=== PATIENT | male | born 1980 | race Caucasian/White ===

== ENCOUNTER 2017-10-13 15:51 | Emergency (ER) | payer OTHER, SELFPAY ==
[2017-10-13 15:53] VITALS: BP 123/71; PULSE 87; RESP 18; TEMP 37.1; O2SAT 99; BMI 20.2
--- NOTE | 2017-10-13 16:11 | HMH.EDGENADL ---
ED Disposition Clinical Impression: Rotavirus enteritis, Hyperglycemia, Atypical chest pain, Dizziness Disposition: Home, Self-Care Condition on Discharge: Good Instructions: DI for Rotavirus -- Adult, DI for Atypical Chest Pain, DI for Hyperglycemia -- Adult Additional Instructions: Resume oral intake and insulin. Call your physician on Sunday. Additional instructions for VOMITING/DIARRHEA: See your physician as soon as possible for further evaluation. Return immediately if severe abdominal pain, uncontrollable vomiting, shortness of breath, fever, vomiting of blood or abdominal distention. Additional instructions for CHEST PAIN: See your physician as soon as possible for further evaluation. Return immediately if worsening chest pain, vomiting, shortness of breath, fever, coughing of blood. Prescriptions: Meclizine HCl [Antivert 25mg tablet] 25 mg PO TIDP PRN #10 tab PRN Reason: Vertigo Ondansetron [Zofran 4mg ODT] 4 mg PO TIDP PRN #10 tab.rapdis PRN Reason: Nausea And Vomiting Referrals: Marita Garrett [Primary Care Provider] - - Critical Care Critical Care Time: No Attestation: On , the high probability of a clinically significant, sudden or life threatening deterioration of the following system(s) required my full and direct attention, intervention and personal management. The time I documented below is in addition to time spent performing reported procedures but includes the following listed in this critical care notation. Medical Decision Making Vital Signs: 10/13/17 15:53 10/13/17 19:22 Temperature 98.7 F Temperature Source Oral Pulse Rate [Brachial] 87 90 Respiratory Rate 18 20 Blood Pressure [Right Arm] 123/71 126/79 Blood Pressure Mean [Right Arm] 88 94 Blood Pressure Source [Right Arm] Automatic Cuff Automatic Cuff Blood Pressure Position [Right Arm] Supine Sitting 02 Sat by Pulse Oximetry 99 100 Oxygen Delivery Method Room Air Room Air - Lab Data Lab results reviewed: Yes: I reviewed the patient's lab results. Lab Results 10/13/17 16:15: Stl Aeromonas (PCR) Not detected, Stl C. cayetanensis PCR Not detected, Stool Rotavirus (PCR) Detected A, Stl Adenov F 40/41 PCR Not detected, Stool Astrovirus (PCR) Not detected, Stool Cryptosporidium PCR Not detected, Stl E.coli Shiga Tox PCR Not detected, Stool E coli O157 PCR Not detected, Stl Enterotoxigenic E PCR Not detected, Stool EPEC (PCR) Not detected, Stool EAEC (PCR) Not detected, Stl E. histolytica PCR Not detected, Stool Giardia Lamblia PCR Not detected, Stool Sapovirus (PCR) Not detected, Stl P. shigelloides PCR Not detected, Stl Shigella/EIEC PCR Not detected, St Y.enterocolitica PCR Not detected, Stool Vibrio (PCR) Not detected, Stl Vibrio cholerae PCR Not detected, Stl Norovirus GI/GII PCR Not detected, Campylobacter (PCR) Not detected, C. difficile (PCR) Not detected, Salmonella (PCR) Not detected 10/13/17 16:28: WBC 6.5, RBC 5.06, Hgb 15.4, Hct 44.2, MCV 87.5, MCH 30.4, MCHC 34.8, RDW 12.7, Plt Count 128 L, MPV 8.3, Neut % (Auto) 85.5 H, Lymph % (Auto) 7.1 L, [place] % (Auto) 5.9, Eos % (Auto) 1.3, Baso % (Auto) 0.1, Neut # (Auto) 5.5, Lymph # (Auto) 0.5 L, [place] # (Auto) 0.4, Eos # (Auto) 0.1, Baso # (Auto) 0.0, Total Counted 100, Neutrophils % (Manual) 86 H, Band Neutrophils % 2.0, Lymphocytes % (Manual) 6 L, Monocytes % (Manual) 5, Eosinophils % (Manual) 1, Platelet Estimate Slight decrease, RBC Morphology Normal 10/13/17 16:28: Sodium 137, Potassium 4.5, Chloride 102, Carbon Dioxide 28, Anion Gap 11.5, BUN 15, Creatinine 1.01, Estimated Creat Clear 92, Estimated GFR 83, Est GFR ( Amer) 100, Glucose 325 H, Calcium 8.8, Total Bilirubin 0.8, AST 11 L, ALT 24, Alkaline Phosphatase 100, Total Creatine Kinase 36 L, CK-MB (CK-2) 0.6, CK-MB (CK-2) Rel Index 1.7, Troponin I < 0.02, Total Protein 6.9, Albumin 4.1, Globulin 2.8, Albumin/Globulin Ratio 1.5 10/13/17 19:13: POC Glucose 185 Result diagrams: 01/13/18 16:28 10/13/17 16
[2017-10-13 16:36] LABS: Adenovirus F 40/41, stool Not Detected (NotDetected); Astrovirus Not Detected (NotDetected); Campylobacter Not Detected (NotDetected); Clostridium Difficile A/B, PCR Not Detected (NotDetected); Cryptosporidium Not Detected (NotDetected); Cyclospora Cayetanesis Not Detected (NotDetected); Entamoeba histolytica Not Detected (NotDetected); Enteroaggregative E coli Not Detected (NotDetected); Enteropathogenic E coli Not Detected (NotDetected); Enterotoxigenic E coli Not Detected (NotDetected); Giardia lamblia Not Detected (NotDetected); Norovirus Not Detected (NotDetected); Plesimonas Shigalloides, PCR Not Detected (NotDetected); Salmonella, PCR Not Detected (NotDetected); Sapovirus Not Detected (NotDetected); Shiga-like toxin E coli Not Detected (NotDetected); Shigella Enterovasive E coli Not Detected (NotDetected); Vibrio Cholerae Not Detected (NotDetected); Vibrio, PCR Not Detected (NotDetected); Yersinia Entercolitica, PCR Not Detected (NotDetected)
[2017-10-13 16:39] LABS: Basophils % 0.1 % (0.1-2.0); Eosinophils # 0.1 K/mm3 (0.0-0.4); Eosinophils % 1.3 % (0.1-12.0); Hematocrit 44.2 % (42.0-52.0); Hemoglobin 15.4 g/dL (14.1-18.0); Lymphocytes # 0.5 K/mm3 (0.7-4.5); Lymphocytes % 7.1 K/mm3 (10-50); Mean Corpuscular HGB Conc 34.8 g/dL (31.8-35.4); Mean Corpuscular Hemoglobin 30.4 pg (27.0-31.2); Mean Corpuscular Volume 87.5 fl (80-94); Mean Platelet Volume 8.3 fl (7.4-10.4); Monocytes # 0.4 K/mm3 (0.1-1.0); Monocytes % 5.9 % (1.7-9.3); Neutrophils # 5.5 K/mm3 (1.8-7.8); Neutrophils % 85.5 % (37.0-80.0); Platelet Count 128 K/mm3 (142-424); Red Blood Count 5.06 M/mm3 (4.60-6.20); Red Cell Distribution Width 12.7 % (11.5-17.5); White Blood Count 6.5 K/mm3 (4.8-10.8)
[2017-10-13 16:41] LABS: MANUAL DIFFERENTIAL MANUAL DIFFERENTIAL (MANUAL DIFF)
[2017-10-13 16:58] LABS: Eosinophils % 1 % (0-3); Lymphocytes % 6 % (10-50); Monocytes % 5 % (2-9); Neutrophils % 86 % (42-76); Platelet Estimate Slight Decrease; RBC Morphology Normal; Total Cells Counted 100
[2017-10-13 17:09] LABS: Alanine Aminotransferase 24 U/L (12-78); Albumin Level 4.1 gm/dL (3.4-5.0); Albumin/Globulin Ratio 1.5 (1.1-1.8); Alkaline Phosphatase 100 U/L (46-116); Anion Gap 11.5 mEq/L (5-15); Aspartate Amino Transferase 11 U/L (15-37); Bilirubin,Total 0.8 mg/dL (0.2-1.0); Blood Urea Nitrogen 15 mg/dL (7-18); CKMB Relative Index 1.7 U/L (0-4.0); Calcium 8.8 mg/dL (8.5-10.1); Carbon Dioxide 28 mmol/L (21.0-32.0); Chloride 102 mmol/L (98-107); Creatine Kinase 36 U/L (39-308); Creatine Kinase MB 0.6 mg/ml (0.0-3.6); Creatinine Clearance Estimated 92 mL/min (0-300); Creatinine,Serum 1.01 mg/dL (0.70-1.30); Estimated Glomerular Filt Rate 83 ml/min (>60); GFR (African American) 100 ML/MIN (>60); Globulin 2.8 gm/dl (1.3-3.2); Glucose 325 mg/dL (74-106); Potassium 4.5 mmoL/L (3.5-5.1); Sodium 137 mmol/L (136-145); Total Protein,Serum 6.9 gm/dL (6.4-8.2); Troponin I < 0.02 ng/ml (0.00-0.06)
[2017-10-13 18:31] LABS: Rotavirus A Detected (NotDetected)
[2017-10-13 19:21] LABS: POC Glucose,Bedside 185 mg/dL
[2017-10-13 19:22] VITALS: BP 126/79; PULSE 90; RESP 20; O2SAT 100
== END 2017-10-13 19:46 | disposition home or self-care (01) ==
PROVIDERS: Emergency Provider Emergency Medicine; PCP Nurse Practitioner Family
DX: A08.0 Rotaviral enteritis (principal); R07.89 Other chest pain; I10 Essential (primary) hypertension; E11.649 Type 2 diabetes mellitus with hypoglycemia without coma; Z79.4 Long term (current) use of insulin
CPT/HCPCS: 80053; 82550; 82553; 82962; 84484; 85007; 85025; 87507; 93005; 93041; 96365; 96372; 96374; 96375; 99283; 99284; J2405

== ENCOUNTER 2017-11-21 13:24 | Observation (INO) | payer OTHER, SELFPAY ==
[2017-11-21] VITALS (8 sets, daily range): BP systolic 118–158; BP diastolic 71–102; PULSE 69–99; RESP 16–20; TEMP 36.6–36.9; O2SAT 96–100; BMI 44.2; BMI 20.2
--- NOTE | 2017-11-21 | CA_ITS ---
PROCEDURE: 2-D M-mode and color Doppler study INDICATIONS FOR THE TEST: Chest pain+ COPD+ Heart Murmur+ Tobacco Smokingex Palpitations+ Fatigue+ Syncope Edema Hypertension+Diabetes Mellitus+ Rheumatic Fever SOB+CASTRO+Obesity Hyperlipidemia+ Family History HD Additional History cad, stents, dizziness PATIENT INFORMATION HEIGHT: 71 WEIGHT: 145 GENDER: Male B/P: 158/102 2-D/M-MODE INTERPRETATION: 2-D MEASUREMENTS OBSERVED VALUES IN CMS Right Ventricular Dimension (RVDd) Interventricular Septum (Thickness)(IVsd) 0.9 Left Ventricular Internal Dimensions(LVIDd) 3.8 Left Ventricular Posterior Wall (Thickness)(LVPWd) 0.8 Aortic Root 3.1 Aortic Cusp Separation 2.0 Left Atrial Dimensions (LAD) 2.3 2D 1. Technically difficult study because of the patient's factor and poor acoustic windows 2. Left atrium is normal size, left ventricle is normal size, there is mild qualitative concentric left ventricular hypertrophy, visually estimated ejection fraction 55% with no obvious regional wall motion abnormality. 3. The right atrium and right ventricle are normal size and contractility. 4. The aortic valve is minimally thickened and fibrosed. 5. The mitral and tricuspid valve leaflets are minimally thickened. 6. The pulmonic valve is poorly visualized. 7. No significant pericardial effusion noted. DOPPLER INTERROGATION: Doppler interrogation of the aortic, mitral and tricuspid valvular presence of mild mitral and tricuspid regurgitation, tricuspid and jet velocity is insufficient for calculation of the right ventricular systolic pressure, grade 1 diastolic dysfunction seen without tissue Doppler evidence of raised left atrial pressure. CONCLUSION: 1. Technically difficult study because of the patient's factor and poor acoustic windows 2. Normal left ventricular size, mild concentric left ventricular hypertrophy, visually estimated ejection fraction of 55% with no obvious regional wall motion abnormality, grade 1 diastolic dysfunction seen without tissue Doppler evidence of raised left atrial pressure. 3. Mild mitral and tricuspid regurgitation 4. No significant pericardial effusion noted.
--- NOTE | 2017-11-21 13:26 | XR_ITS ---
XR chest 2V HISTORY: ITS.REASON: chest pain ORDERING PHYSICIAN: Zay Florentino MD PATIENT AGE: 37 years COMPARISON: None available FINDINGS: The cardiomediastinal silhouette and pulmonary vascularity are within normal limits. Coronary artery calcifications and/or stent noted The lungs are clear without infiltrates, suspicious nodules, or pleural effusions. No acute bony abnormalities. IMPRESSION: 1. No acute finding. 2. Coronary artery disease
--- NOTE | 2017-11-21 13:42 | HMH.EDGENADL ---
ED Disposition Clinical Impression: Precordial chest pain Disposition: Still a Patient Condition on Discharge: Good Referrals: Marita Garrett [Primary Care Provider] - - Critical Care Critical Care Time: No Attestation: On , the high probability of a clinically significant, sudden or life threatening deterioration of the following system(s) required my full and direct attention, intervention and personal management. The time I documented below is in addition to time spent performing reported procedures but includes the following listed in this critical care notation. Medical Decision Making Vital Signs: 11/21/17 13:24 11/21/17 14:24 11/21/17 14:54 Temperature 98 F Temperature Source Oral Pulse Rate [Right Radial] 71 71 69 Respiratory Rate 16 16 Blood Pressure [Right Arm] 158/102 142/87 138/86 Blood Pressure Mean [Right Arm] 120 105 103 Blood Pressure Source [Right Arm] Automatic Cuff Automatic Cuff Automatic Cuff Blood Pressure Position [Right Arm] Supine Sitting Sitting 02 Sat by Pulse Oximetry 98 100 100 Oxygen Delivery Method Nasal Cannula Room Air Room Air - Lab Data Lab Results 11/21/17 13:30: WBC 7.0, RBC 5.33, Hgb 16.4, Hct 46.2, MCV 86.7, MCH 30.8, MCHC 35.5 H, RDW 12.3, Plt Count 164, MPV 8.1, Neut % (Auto) 71.7, Lymph % (Auto) 20.9, [place] % (Auto) 5.1, Eos % (Auto) 2.2, Baso % (Auto) 0.1, Neut # (Auto) 5.0, Lymph # (Auto) 1.5, [place] # (Auto) 0.4, Eos # (Auto) 0.2, Baso # (Auto) 0.0 11/21/17 13:30: Sodium 138, Potassium 4.0, Chloride 100, Carbon Dioxide 31, Anion Gap 11.0, BUN 9, Creatinine 0.84, Estimated Creat Clear 111, Estimated GFR 102, Est GFR ( Amer) 124, Glucose 312 H, Calcium 9.4, Total Bilirubin 0.7, AST 13 L, ALT 34, Alkaline Phosphatase 114, Total Creatine Kinase 48, CK-MB (CK-2) 0.5, CK-MB (CK-2) Rel Index 1.0, Troponin I < 0.02, Total Protein 7.9, Albumin 4.4, Globulin 3.5 H, Albumin/Globulin Ratio 1.3 Result diagrams: 11/21/17 13:30 11/21/17 13:30 Orders (Tests/Meds): ORDERS Category Date Time Status NM shon perf SPECT rest & str Routine Nuc Med 11/22/17 07:00 Ordered CA Echo Req by /Nse Routine Y 11/21/17 15:17 Ordered - Radiology Data #1 Image(s): Chest Image Reviewed: Yes I reviewed the patient's radiology results Preliminary Findings: Normal/NAD - ECG Data Tracing #1 EKG interpreted by Zay Florentino MD: Rhythm: sinus Rate: 68 [place]: normal Ectopy: none Conduction: normal ST Segment Changes: none T Wave Changes: none Q Waves: none No evidence of acute ischemia or injury - Dariusz Inquiry Pt receiving controlled substance: No Medical Decision Making Narrative: 2:44 PM: Case discussed with Carlos, for Dr. Parson. Will discuss with medicine on-call regarding possible admission for stress and echo tomorrow. Carlos the patient in the emergency department. 3:17 PM: I have discussed the case with Dr. Patterson who agrees to admit the patient to the hospital. We discussed the patient's clinical information, including history, exam, laboratory and radiology results and ED course. Per hospital procedure, I will write temporary bridge inpatient orders on the patient. General Adult HPI - General Stated complaint: chest pain - History of Present Illness HPI narrative: The patient states that he has had constant pain in the center of his chest for 1 week associated with shortness of breath. He also gets waves of nausea and when these occur he gets more short of breath. He has some occasional jolts of pain down his left arm and left leg. The pain in his chest sometimes radiates between his shoulder blades. Denies diaphoresis. 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 A stress test was ordered, and an echocardiogram. Since last night however his symptoms have worsened, the pain is more severe since then. He had been started on a form of nitroglycerin yesterday and thought that that might
[2017-11-21 14:04] LABS: Basophils % 0.1 % (0.1-2.0); Eosinophils # 0.2 K/mm3 (0.0-0.4); Eosinophils % 2.2 % (0.1-12.0); Hematocrit 46.2 % (42.0-52.0); Hemoglobin 16.4 g/dL (14.1-18.0); Lymphocytes # 1.5 K/mm3 (0.7-4.5); Lymphocytes % 20.9 K/mm3 (10-50); Mean Corpuscular HGB Conc 35.5 g/dL (31.8-35.4); Mean Corpuscular Hemoglobin 30.8 pg (27.0-31.2); Mean Corpuscular Volume 86.7 fl (80-94); Mean Platelet Volume 8.1 fl (7.4-10.4); Monocytes # 0.4 K/mm3 (0.1-1.0); Monocytes % 5.1 % (1.7-9.3); Neutrophils % 71.7 % (37.0-80.0); Platelet Count 164 K/mm3 (142-424); Red Blood Count 5.33 M/mm3 (4.60-6.20); Red Cell Distribution Width 12.3 % (11.5-17.5)
[2017-11-21 14:12] LABS: Alanine Aminotransferase 34 U/L (12-78); Albumin Level 4.4 gm/dL (3.4-5.0); Albumin/Globulin Ratio 1.3 (1.1-1.8); Alkaline Phosphatase 114 U/L (46-116); Aspartate Amino Transferase 13 U/L (15-37); Bilirubin,Total 0.7 mg/dL (0.2-1.0); Blood Urea Nitrogen 9 mg/dL (7-18); Calcium 9.4 mg/dL (8.5-10.1); Carbon Dioxide 31 mmol/L (21.0-32.0); Chloride 100 mmol/L (98-107); Creatine Kinase 48 U/L (39-308); Creatine Kinase MB 0.5 mg/ml (0.0-3.6); Creatinine Clearance Estimated 111 mL/min (0-300); Creatinine,Serum 0.84 mg/dL (0.70-1.30); Estimated Glomerular Filt Rate 102 ml/min (>60); GFR (African American) 124 ML/MIN (>60); Globulin 3.5 gm/dl (1.3-3.2); Glucose 312 mg/dL (74-106); Sodium 138 mmol/L (136-145); Total Protein,Serum 7.9 gm/dL (6.4-8.2); Troponin I < 0.02 ng/ml (0.00-0.06)
--- NOTE | 2017-11-21 14:40 | PC.NURSE ---
yash maria speaking with parveen iqbal in regards to pt
--- NOTE | 2017-11-21 15:01 | HMH.CNCARD ---
History of Present Illness Consult date: 11/21/17 Requesting physician: Daniel Patterson Consult reason: chest pain Chief complaint: chest pain, nausea, diaphoresis Additional Medical History:: 1. Coronary artery disease A. Two-vessel coronary artery disease status post drug-eluting stent placement to LAD and bifurcating into the first diagonal 06/06/2017. B. Lexiscan Myoview, 06/18/2017, no ischemia and normal left ventricular ejection fraction. C. Follows with Endocrinology at [place] in [facility]. 2. Diabetes mellitus, insulin requiring, diagnosed about 2002 A. Retinopathy with history of eye surgery May 2017 . 3. Hyperlipidemia 4. Hypertension A. Echo, 06/05/2017, normal LV size and function without wall motion abnormalities. Mild MR/TR. Diastolic parameters normal. 5. Tobacco use, for about 20 years. A. Discontinued 06/2017 6. Family history of coronary artery disease in both his mother and her relatives in their 40s and 50s. History of present illness: 37-year-old white male with type 1 diabetes mellitus and history of coronary artery disease requiring coronary artery stenting in June 2017 was seen in the emergency department for continued chest pain. Patient was seen in the office yesterday for similar symptoms and was started on isosorbide mononitrate without change in symptoms. He relates anterior chest discomfort along with nausea and diaphoresis over the last month which may last for hours and even days without change. Patient denies any vomiting or diarrhea, fever or chills. Initial troponin in the emergency department has been normal. EKG is sinus and unremarkable. Radiology consulted for evaluation recommendations. [facility] History Medical History: Reports:: Coronary Artery Disease, Depression, Diabetes Mellitus Type 2, Hypertension, MRSA Other Surgeries: Yes: Cardiac Catheterization, Coronary Stent Amputation: No - *Social History Smoking Status: Former smoker Alcohol Intake: current Alcohol Intake Frequency:: a few times a week - Psychiatric History Pschychiatric History:: Reports:: Depression *Family Hx:: Coronary Artery Disease, Diabetes, Hypertension Meds Home Medications Medication Instructions Recorded Confirmed Type Atorvastatin Calcium [Atorvastatin 40 mg PO HS 10/13/17 10/13/17 History 40mg Tab] Clopidogrel Bisulfate [Plavix 75mg 75 mg PO DAILY 10/13/17 10/13/17 History Tab] Gabapentin [Gabapentin 300mg Cap] 300 mg PO BID 10/13/17 10/13/17 History Linagliptin [Tradjenta] 5 mg PO DAILY 10/13/17 10/13/17 History Lisinopril [Lisinopril 10mg Tab] 10 mg PO DAILY 10/13/17 10/13/17 History Nadolol [Nadolol] 80 mg PO DAILY 10/13/17 10/13/17 History Pantoprazole Sodium [Pantoprazole 40 mg PO DAILY 10/13/17 10/13/17 History 20mg Tab] Trazodone HCl 50 mg PO HS 10/13/17 10/13/17 History Umeclidinium Brm/Vilanterol Tr 1 mcg INHALATION DAILY 10/13/17 10/13/17 History [Anoro Ellipta 62.5-25 Mcg INH] aspirin 81 mg tablet,delayed 81 mg PO .qday tab 11/20/17 History release buspirone 10 mg tablet 10 mg PO .qday tab 11/20/17 History doxepin 50 mg capsule 50 mg PO QHS 11/20/17 History insulin glargine (U-100) 100 30 unit SUB-Q QHS ml 11/20/17 History unit/mL (3 mL) subcutaneous pen metformin 500 mg tablet 2,000 mg PO .qday tab 11/20/17 History ropinirole 1 mg tablet 1 mg PO .qday tab 11/20/17 History vilazodone 20 mg tablet 20 mg PO .qday tab 11/20/17 History Allergies Allergy/AdvReac Type Severity Reaction Status Date / Time No Known Allergies Allergy Unverified 09/18/17 15:38 Review of Systems - *Cardiovascular Reports chest pain, Reports shortness of breath with activity - *Respiratory Reports shortness of breath with activity - *Gastrointestinal Reports heartburn, Reports nausea - *Musculoskeletal Reports numbness, Reports tingling Exam Vital signs and Labs for Last 24 Hours: Temp Pulse Resp BP Pulse Ox 98 F 7
--- NOTE | 2017-11-21 15:20 | PC.NURSE ---
LILIANE QUIÑONES spoke with Dr. Patterson who was agreeable to admit pt.
--- NOTE | 2017-11-21 16:18 | HMH.PHAVTE ---
[facility] Pharmacy VTE Monitoring - Patient Demographics Admission date: 11/21/17 Report Date: 11/21/17 Time: 16:18 Allergies/Adverse Reactions: Patient Allergies No Known Allergies Allergy (Unverified 09/18/17 15:38) Height: 1.8 m Weight: 65.119 kg Patient Problems: Current Active Problems Precordial chest pain (Acute) - VTE Risk Labs: VTE Related Lab Results Hgb 16.4 g/dL (14.1-18.0) 11/21/17 13:30 Hct 46.2 % (42.0-52.0) 11/21/17 13:30 Plt Count 164 K/mm3 (142-424) 11/21/17 13:30 BUN 9 mg/dL (7-18) 11/21/17 13:30 Creatinine 0.84 mg/dL (0.70-1.30) 11/21/17 13:30 Estimated Creat Clear 111 mL/min (0-300) 11/21/17 13:30 - Prophylaxis VTE Prophylaxis Ordered?: Yes Types of VTE Prophylaxis: TEDS Knee High Location of Applied Device: Bilateral Lower Extremeties - VTE Diagnosis Confirmed Treatment or plan recommended: Continue Current Treatment
[2017-11-21 16:57] LABS: Troponin I < 0.02 ng/ml (0.00-0.06)
--- NOTE | 2017-11-21 19:00 | PC.NURSE ---
REPORT GIVEN TO RAAD HARTMANN RN
[2017-11-21 19:06] LABS: Troponin I < 0.02 ng/ml (0.00-0.06)
--- NOTE | 2017-11-21 19:25 | PC.NURSE ---
PT FULL CODE, REPORT FROM CHARO
[2017-11-21 21:28] LABS: Troponin I < 0.02 ng/ml (0.00-0.06)
--- NOTE | 2017-11-21 23:10 | PC.NURSE ---
PT REQUESTED GLUCOSE CHECK, STATES HE HAS BEEN HAVING HOT FLASHES. SPOT CHECKED, FINGER STICK RESULT WAS 71. JUICE WITH SUGAR GIVEN. WILL CONTINUE TO MONITOR FOR ANY FURTHER CHANGES.
[2017-11-22] VITALS: BP 132/75; PULSE 70; PULSE 76; RESP 18; TEMP 36.6; O2SAT 97
[2017-11-22 04:00] VITALS: BP 126/77; PULSE 70; PULSE 79; RESP 18; TEMP 36.7; O2SAT 100
--- NOTE | 2017-11-22 04:55 | PC.NURSE ---
PT ALERT AND ORIENTED. OBTAINED ORDER FOR PT'S HOME MEDICATION FOR SLEPT. PT SLEPT INTERVALS. TOOK SHOWER. NEW IV STARTED WITH ONE ATTEMPT, OTHER WAS DISLODGED. NO C/O PAIN OR DISCOMFORT THIS SHIFT. NSR ON MONITOR. AT BEDSIDE. PT HAS BEEN NPO SINCE MIDNIGHT R/T STRESS TEST SCHEDULED FOR 0730 THIS AM. PT STABLE. WILL CONTINUE TO MONITOR. REPORT TO BE GIVEN TO ONCOMING NURSE.
[2017-11-22 06:59] LABS: POC Glucose,Bedside 71 mg/dL (70-110)
--- NOTE | 2017-11-22 07:00 | NM_ITS ---
History and Indications: Coronary artery disease, hypertension, diabetes, hyperlipidemia, family history, chest pain shortness of breath. Procedure: Patient exercised on Jayce protocol 9 minutes and 30 seconds, resting heart rate was 76 bpm resting blood pressure 119/87, with exercise maximum heart rate achieved was 1 28 bpm which is equal to 70% of the maximum predicted heart rate and a blood pressure was 160/88, test was started due to shortness of breath patient , patient has baseline chest pain was exercise. Patient has good exercise capacity achieved 10.1mets of workload on treadmill, the blood pressure response to exercise was adequate. Electrocardiogram: Resting electrocardiogram showed sinus rhythm nonspecific ST-T changes, with exercise there is less than 1.[address] segment depression noted from the baseline EKG. The EKG portion of the exercise Myoview is nondiagnostic secondary to baseline abnormal EKG and patient did not achieve the target heart rate. Cardiac stress and resting SPECT images: Cardiac stress and rest images were obtained using technetium 99 Myoview 10.5 mCi at rest and 32.8 mCi at stress, gated SPECT further analysis of segmental wall motion and calculation of ejection fraction also done. Cardiac stress and rest SPECT images show uniform myocardial activity without any segmental perfusion abnormality, computer derived ejection fraction is 65% with no obvious regional wall motion abnormality, right ventricle is normal size and contractility. Conclusion: 1. The EKG portion of the exercise Myoview is nondiagnostic. Patient has good exercise capacity achieved 10.1mets of workload on treadmill, the blood pressure response to exercise was adequate. Patient did not achieve the target heart rate. Test was started due to shortness of breath, patient has baseline chest discomfort which was with exercise. 2. No obvious scintigraphic evidence of reversible ischemia seen at this level of exercise, computer derived ejection fraction is 65% with no obvious regional wall motion abnormality, right ventricle is normal size and contractility.
--- NOTE | 2017-11-22 07:23 | PC.NURSE ---
REPORT GIVEN TO Eulogio KUNZ W/C
--- NOTE | 2017-11-22 07:25 | HMH.HP ---
*Admission Date: 11/21/17 *Chief complaint: chest pain *History of present illness: this wm who has known cad with stents placed last fall and iddm presented with chest pain over the last few days- The patient states that he has had constant pain in the center of his chest for 1 week associated with shortness of breath. He also gets waves of nausea and when these occur he gets more short of breath. He has some occasional jolts of pain down his left arm and left leg. The pain in his chest sometimes radiates between his shoulder blades. Denies diaphoresis. 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 A stress test was ordered, and an echocardiogram. Since last night however his symptoms have worsened, the pain is more severe since then. He had been started on a form of nitroglycerin yesterday and thought that that might be causing his symptoms to worsen. He called the pharmacy and they advised him that his symptoms should improve with the medication, not worsened. They advised him to call his physician. They called Dr. Parson's office and spoke with Chio, the nurse practitioner, who advised him to come to the emergency room. He has a history of coronary artery disease. He had an angiogram last June and had 2 stents placed. He says that the nurse practitioner that he had a small artery that was not stented at that time that had a blockage and they were concerned that this was worsening. o-vessel coronary artery disease status post drug-eluting stent placement to LAD and bifurcating into the first diagonal 06/06/2017. B. Nayan Myoview, 06/18/2017, no ischemia and normal left ventricular ejection fraction. C. Follows with Endocrinology at [place] in [facility]. 2. Diabetes mellitus, insulin requiring, diagnosed about 2002 A. Retinopathy with history of eye surgery May 2017 . 3. Hyperlipidemia 4. Hypertension A. Echo, 06/05/2017, normal LV size and function without wall motion abnormalities. Mild MR/TR. Diastolic parameters normal. 5. Tobacco use, for about 20 years. A. Discontinued 06/2017 6. Family history of coronary artery disease in both his mother and her relatives in their 40s and 50s. History of present illness: 37-year-old white male with type 1 diabetes mellitus and history of coronary artery disease requiring coronary artery stenting in June 2017 was seen in the emergency department for continued chest pain. Patient was seen in the office yesterday for similar symptoms and was started on isosorbide mononitrate without change in symptoms. He relates anterior chest discomfort along with nausea and diaphoresis over the last month which may last for hours and even days without change. Patient denies any vomiting or diarrhea, fever or chills. Initial troponin in the emergency department has been normal. EKG is sinus and unremarkable. Radiology consulted for evaluation recommendations. [facility] History I have reviewed the patient's past medical history: Yes Medical History: Reports:: Coronary Artery Disease, Depression, Diabetes Mellitus Type 2, Hypertension, MRSA, Palpitations Denies:: Cancer, Diabetes Mellitus Type 1 Other Medical History: Reports: Arthritis, Glaucoma Laterality Cases: Bilateral: Other Other Surgeries: Yes: Cardiac Catheterization, Coronary Stent Amputation: No Fractures: No - *Social History Smoking Status: Former smoker Smoking End Date: 6 MONTHS Alcohol Intake: current Alcohol Intake Frequency:: 0-2 drinks per day Occupational Status: unemployed Housing: house Household Members: friend(s) - Psychiatric History Expresses thoughts of harming self/others: None Suicide Plan Description: No Plan Pschychiatric History:: Reports:: Depression *Family Hx:: Cancer, Coronary Artery Disease, Diabetes, Hypertension Review of Systems - Review of Systems Review of systems:: pertinent systems reviewed and negative unless documented below - Constitutional Damian
[2017-11-22 11:39] VITALS: BP 116/72; PULSE 78; RESP 20; TEMP 36.6; O2SAT 98
[2017-11-22 12:00] VITALS: PULSE 80
[2017-11-22 16:00] VITALS: PULSE 80
--- NOTE | 2017-11-22 16:11 | HMH.DCSUM ---
General - General Admission date: 11/21/17 Discharge date: 11/22/17 HPI HPI: this wm who has known cad with stents placed last fall and iddm presented with chest pain over the last few days- The patient states that he has had constant pain in the center of his chest for 1 week associated with shortness of breath. He also gets waves of nausea and when these occur he gets more short of breath. He has some occasional jolts of pain down his left arm and left leg. The pain in his chest sometimes radiates between his shoulder blades. Denies diaphoresis. 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 A stress test was ordered, and an echocardiogram. Since last night however his symptoms have worsened, the pain is more severe since then. He had been started on a form of nitroglycerin yesterday and thought that that might be causing his symptoms to worsen. He called the pharmacy and they advised him that his symptoms should improve with the medication, not worsened. They advised him to call his physician. They called Dr. Parson's office and spoke with Chio, the nurse practitioner, who advised him to come to the emergency room. He has a history of coronary artery disease. He had an angiogram last June and had 2 stents placed. He says that the nurse practitioner that he had a small artery that was not stented at that time that had a blockage and they were concerned that this was worsening. o-vessel coronary artery disease status post drug-eluting stent placement to LAD and bifurcating into the first diagonal 06/06/2017. B. Nayan Myoview, 06/18/2017, no ischemia and normal left ventricular ejection fraction. C. Follows with Endocrinology at [facility] in [facility]. 2. Diabetes mellitus, insulin requiring, diagnosed about 2002 A. Retinopathy with history of eye surgery May 2017 . 3. Hyperlipidemia 4. Hypertension A. Echo, 06/05/2017, normal LV size and function without wall motion abnormalities. Mild MR/TR. Diastolic parameters normal. 5. Tobacco use, for about 20 years. A. Discontinued 06/2017 6. Family history of coronary artery disease in both his mother and her relatives in their 40s and 50s. History of present illness: 37-year-old white male with type 1 diabetes mellitus and history of coronary artery disease requiring coronary artery stenting in June 2017 was seen in the emergency department for continued chest pain. Patient was seen in the office yesterday for similar symptoms and was started on isosorbide mononitrate without change in symptoms. He relates anterior chest discomfort along with nausea and diaphoresis over the last month which may last for hours and even days without change. Patient denies any vomiting or diarrhea, fever or chills. Initial troponin in the emergency department has been normal. EKG is sinus and unremarkable. Radiology consulted for evaluation recommendations. Objective Vital signs: Temp Pulse Resp BP Pulse Ox 97.9 F 78 20 116/72 98 11/22/17 11:39 11/22/17 11:39 11/22/17 11:39 11/22/17 11:39 11/22/17 11:39 no acute distress - *Routine HEENT Exam Head: Present: normocephalic Eye: Present: PERRL ENT: Present: mucous membranes moist - *Routine Neck Exam Present: supple, full ROM - *Routine Respiratory Exam Present: CTA bilaterally - *Routine Cardiovascular Exam Present: RRR - *Routine Abdominal Exam Present: soft - *Routine Extremities Exam Present: full ROM - *Routine Neurological Exam Present: alert, oriented X3 Hospital Course Hospital Course: STRESS TEST:Conclusion: 1. The EKG portion of the exercise Myoview is nondiagnostic. Patient has good exercise capacity achieved 10.1mets of workload on treadmill, the blood pressure response to exercise was adequate. Patient did not achieve the target heart rate. Test was started due to shortness of breath, patient has baseline chest discomfort which wa
--- NOTE | 2017-11-22 16:15 | P.DS_ITS ---
General - General Admission date: 11/21/17 Discharge date: 11/22/17 HPI HPI: this wm who has known cad with stents placed last fall and iddm presented with chest pain over the last few days- The patient states that he has had constant pain in the center of his chest for 1 week associated with shortness of breath. He also gets waves of nausea and when these occur he gets more short of breath. He has some occasional jolts of pain down his left arm and left leg. The pain in his chest sometimes radiates between his shoulder blades. Denies diaphoresis. 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 A stress test was ordered , and an echocardiogram. Since last night however his symptoms have worsened, the pain is more severe since then. He had been started on a form of nitroglycerin yesterday and thought that that might be causing his symptoms to worsen. He called the pharmacy and they advised him that his symptoms should improve with the medication, not worsened. They advised him to call his physician. They called Dr. Parson's office and spoke with Chio, the nurse practitioner, who advised him to come to the emergency room. He has a history of coronary artery disease. He had an angiogram last June and had 2 stents placed. He says that the nurse practitioner that he had a small artery that was not stented at that time that had a blockage and they were concerned that this was worsening. o-vessel coronary artery disease status post drug-eluting stent placement to LAD and bifurcating into the first diagonal 06/06/2017. B. Nayan Myoview, 06/18/2017, no ischemia and normal left ventricular ejection fraction. C. Follows with Endocrinology at [facility] in [facility]. 2. Diabetes mellitus, insulin requiring, diagnosed about 2002 A. Retinopathy with history of eye surgery May 2017 . 3. Hyperlipidemia 4. Hypertension A. Echo, 06/05/2017, normal LV size and function without wall motion abnormalities. Mild MR/TR. Diastolic parameters normal. 5. Tobacco use, for about 20 years. A. Discontinued 06/2017 6. Family history of coronary artery disease in both his mother and her relatives in their 40s and 50s. History of present illness: 37-year-old white male with type 1 diabetes mellitus and history of coronary artery disease requiring coronary artery stenting in June 2017 was seen in the emergency department for continued chest pain. Patient was seen in the office yesterday for similar symptoms and was started on isosorbide mononitrate without change in symptoms. He relates anterior chest discomfort along with nausea and diaphoresis over the last month which may last for hours and even days without change. Patient denies any vomiting or diarrhea, fever or chills. Initial troponin in the emergency department has been normal. EKG is sinus and unremarkable. Radiology consulted for evaluation recommendations. Objective Vital signs: Temp Pulse Resp BP Pulse Ox 97.9 F 78 20 116/72 98 11/22/17 11:39 11/22/17 11:39 11/22/17 11:39 11/22/17 11:39 11/22/17 11:39 no acute distress - *Routine HEENT Exam Head: Present: normocephalic Eye: Present: PERRL ENT: Present: mucous membranes moist - *Routine Neck Exam Present: supple, full ROM - *Routine Respiratory Exam Present: CTA bilaterally - *Routine Cardiovascular Exam Present: RRR - *Routine Abdominal Exam Present: soft - *Routine Extremities Exam Present: full ROM - *Routine Neurological Exam Present: alert, oriented X3
[2017-11-29 15:02] LABS: POC Glucose,Bedside 321 mg/dL (70-110)
[2017-11-29 15:02] LABS: POC Glucose,Bedside 340 mg/dL (70-110)
[2017-11-29 15:04] LABS: POC Glucose,Bedside 281 mg/dL (70-110)
[2017-11-29 15:04] LABS: POC Glucose,Bedside 388 mg/dL (70-110)
[2017-11-29 15:04] LABS: POC Glucose,Bedside 194 mg/dL (70-110)
--- NOTE | 2017-12-13 09:48 | P.CONS_ITS ---
History of Present Illness Consult date: 11/21/17 Requesting physician: Daniel Patterson Consult reason: chest pain Chief complaint: chest pain, nausea, diaphoresis Additional Medical History:: 1. Coronary artery disease A. Two-vessel coronary artery disease status post drug-eluting stent placement to LAD and bifurcating into the first diagonal 06/06/2017. B. Lexiscan Myoview, 06/18/2017, no ischemia and normal left ventricular ejection fraction. C. Follows with Endocrinology at [facility] in [facility]. 2. Diabetes mellitus, insulin requiring, diagnosed about 2002 A. Retinopathy with history of eye surgery May 2017 . 3. Hyperlipidemia 4. Hypertension A. Echo, 06/05/2017, normal LV size and function without wall motion abnormalities. Mild MR/TR. Diastolic parameters normal. 5. Tobacco use, for about 20 years. A. Discontinued 06/2017 6. Family history of coronary artery disease in both his mother and her relatives in their 40s and 50s. History of present illness: 37-year-old white male with type 1 diabetes mellitus and history of coronary artery disease requiring coronary artery stenting in June 2017 was seen in the emergency department for continued chest pain. Patient was seen in the office yesterday for similar symptoms and was started on isosorbide mononitrate without change in symptoms. He relates anterior chest discomfort along with nausea and diaphoresis over the last month which may last for hours and even days without change. Patient denies any vomiting or diarrhea, fever or chills. Initial troponin in the emergency department has been normal. EKG is sinus and unremarkable. Radiology consulted for evaluation recommendations. [facility] History Medical History: Reports:: Coronary Artery Disease, Depression, Diabetes Mellitus Type 2, Hypertension, MRSA Other Surgeries: Yes: Cardiac Catheterization, Coronary Stent Amputation: No - *Social History Smoking Status: Former smoker Alcohol Intake: current Alcohol Intake Frequency:: a few times a week - Psychiatric History Pschychiatric History:: Reports:: Depression *Family Hx:: Coronary Artery Disease, Diabetes, Hypertension Meds Home Medications Medication Instructions Recorded Confirmed Type Atorvastatin Calcium [Atorvastatin 40 mg PO HS 10/13/17 10/13/17 History 40mg Tab] Clopidogrel Bisulfate [Plavix 75mg 75 mg PO DAILY 10/13/17 10/13/17 History Tab] Gabapentin [Gabapentin 300mg Cap] 300 mg PO BID 10/13/17 10/13/17 History Linagliptin [Tradjenta] 5 mg PO DAILY 10/13/17 10/13/17 History Lisinopril [Lisinopril 10mg Tab] 10 mg PO DAILY 10/13/17 10/13/17 History Nadolol [Nadolol] 80 mg PO DAILY 10/13/17 10/13/17 History Pantoprazole Sodium [Pantoprazole 40 mg PO DAILY 10/13/17 10/13/17 History 20mg Tab] Trazodone HCl 50 mg PO HS 10/13/17 10/13/17 History Umeclidinium Brm/Vilanterol Tr 1 mcg INHALATION DAILY 10/13/17 10/13/17 History [Anoro Ellipta 62.5-25 Mcg INH] aspirin 81 mg tablet,delayed 81 mg PO .qday tab 11/20/17 History release buspirone 10 mg tablet 10 mg PO .qday tab 11/20/17 History doxepin 50 mg capsule 50 mg PO QHS 11/20/17 History insulin glargine (U-100) 100 30 unit SUB-Q QHS ml 11/20/17 History unit/mL (3 mL) subcutaneous pen metformin 500 mg tablet 2,000 mg PO .qday tab 11/20/17 History ropinirole 1 mg tablet 1 mg PO .qday tab 11/20/17 History vilazodone 20 mg tablet 20 mg PO .qday tab 11/20/17 History Allergies
== END 2017-11-22 17:38 | disposition home or self-care (01) ==
LOC: ER 15:18 → 2ND 15:29
PROVIDERS: Admitting Provider Emergency Medicine; Emergency Provider Emergency Medicine; PCP Nurse Practitioner Family; Visit Provider Emergency Medicine
DX: R07.2 Precordial pain (principal); I25.10 Atherosclerotic heart disease of native coronary artery without angina pectoris; E78.5 Hyperlipidemia, unspecified; I10 Essential (primary) hypertension; E11.9 Type 2 diabetes mellitus without complications; Z86.79 Personal history of other diseases of the circulatory system; Z95.5 Presence of coronary angioplasty implant and graft; Z87.891 Personal history of nicotine dependence; R06.02 Shortness of breath
CPT/HCPCS: 36415; 71046; 78452; 80053; 82550; 82553; 82962; 84484; 85025; 93005; 93017; 93306; 99284; A9502; G0378

== ENCOUNTER → 2017-11-26 09:08 | Outpatient (POV) | payer OTHER, SELFPAY | PROVIDERS: PCP Nurse Practitioner Family; Visit Provider Nurse Practitioner Acute Care | DX: Z00.00 Encounter for general adult medical examination without abnormal findings (principal) ==

== ENCOUNTER 2017-11-29 14:39 | Emergency (ER) | payer OTHER, SELFPAY ==
[2017-11-29 14:40] VITALS: BP 153/103; PULSE 66; RESP 20; TEMP 36.6; O2SAT 100; BMI 20.2
--- NOTE | 2017-11-29 15:31 | ED_ITS ---
ED Disposition Clinical Impression: Diplopia, Retinopathy due to secondary diabetes mellitus, Diabetic complication , Left against medical advice Clinical Impression: (Ruled Out): Monocular diplopia of both eyes Disposition: Home, Self-Care Condition on Discharge: Fair Additional Instructions: 1- strict diet and diabetes control. 2- follow up with eye center at 10 AM tomorrow 11/30/17 3- follow up with [facility] as schedulde 02/12. 4- return if needed for ct scan and labs. Referrals: Marita Garrett [Primary Care Provider] - - Critical Care Critical Care Time: No Attestation: On 11/29/17, the high probability of a clinically significant, sudden or life threatening deterioration of the following system(s) required my full and direct attention, intervention and personal management. The time I documented below is in addition to time spent performing reported procedures but includes the following listed in this critical care notation. Medical Decision Making - Medical Records Medical records reviewed: No: I reviewed the patient's medical records. Vital Signs: 11/29/17 14:40 Temperature 97.9 F Temperature Source Oral Pulse Rate [Left Radial] 66 Respiratory Rate 20 Blood Pressure [Right Arm] 153/103 Blood Pressure Mean [Right Arm] 119 Blood Pressure Source [Right Arm] Automatic Cuff Blood Pressure Position [Right Arm] Sitting 02 Sat by Pulse Oximetry 100 Oxygen Delivery Method Room Air - Dariusz Inquiry Pt receiving controlled substance: No Dariusz was queried for this patient: No Medical Decision Making Narrative: 1530 The patient is alert oriented ?3 in no cardiopulmonary distress with his on the bedside: I advised the patient to undergo a CT scan and labs. Then I will contact [facility] with for probable cancer and urg eye examination by ict quality assurance engineer. The patient declined labs and CT scan and he will see the local eye doctor tomorrow at 10 AM. Is a scheduled see [facility] on February 12, 2018. Eye Problem HPI - General Chief complaint: Dizziness Stated complaint: [id number] double vision Mode of Arrival: Ambulatory Limitations: No Limitations Description of Symptoms (Recalled from ER Triage Doc. by RN): PT states he has double vision. Fell at home denies hitting his head or any other injuries. Stated his eye doctor told him to come to the ER for check up - History of Present Illness HPI Narrative: 37 years old white male with diabetic complications including cardiovascular and retinopathy. He did have macular degeneration and right eye retinopathy that required laser surgery. He does have chronic photopsias and in the right eye and floaters in the left eye. he has Been experiencing double vision for at least one month. He fell landed on his left elbow and was seen in the ER. He had another fall today and he wanted to call his retina doctor at [facility] in [place] that they were unable to see him emergent. He was told to go to the closest ER. He wanted to know if there is anything can be done urgently for his eye. He was seen by local eye doctors in [facility] and after examining him I contacted the eye center, [facility]. I spoke with ict quality assurance engineer Dr. Benson who told me that the closest he can see him as a 10:00 in the morning. She will be referred that the patient undergoes a CT scan. I discussed with the patient obtaining a CT scan and lab w
[2017-11-29 15:47] VITALS: BP 154/98; PULSE 69; RESP 20; TEMP 36.9; O2SAT 100
== END 2017-11-29 15:50 | disposition home or self-care (01) ==
PROVIDERS: Emergency Provider Emergency Medicine; PCP Nurse Practitioner Family
DX: E11.311 Type 2 diabetes mellitus with unspecified diabetic retinopathy with macular edema (principal); H53.2 Diplopia; Z79.4 Long term (current) use of insulin; Z53.20 Procedure and treatment not carried out because of patient's decision for unspecified reasons
CPT/HCPCS: 99281

== ENCOUNTER 2018-01-01 17:00 | Emergency (ER) | payer OTHER, SELFPAY ==
[2018-01-01 17:08] VITALS: BP 142/83; PULSE 78; RESP 16; TEMP 36.9; O2SAT 99; BMI 20.9
--- NOTE | 2018-01-01 17:33 | HMH.EDSKAF ---
ED Disposition Clinical Impression: Abrasion of skin, IDDM (insulin dependent diabetes mellitus), Diabetic retinopathy Disposition: Home, Self-Care Condition on Discharge: Fair Instructions: DI for Laceration Repair Prescriptions: Mupirocin Calcium [Mupirocin 2% Cream 15gm] 1 applicatio TP TID #1 tube Sulfamethoxazole/Trimethoprim [Bactrim DS tablet] 1 each PO BID #20 tab Referrals: Sobia Garcia [Primary Care Provider] - Kirsten Arreaga DPM [Physician] - - Critical Care Critical Care Time: No Attestation: On 01/01/18, the high probability of a clinically significant, sudden or life threatening deterioration of the following system(s) required my full and direct attention, intervention and personal management. The time I documented below is in addition to time spent performing reported procedures but includes the following listed in this critical care notation. Medical Decision Making - Medical Records Medical records reviewed: Yes: I reviewed the patient's medical records. - Dariusz Inquiry Pt receiving controlled substance: No Dariusz was queried for this patient: No Vital Signs: 01/01/18 17:08 Temperature 98.4 F Temperature Source Oral Pulse Rate [Right Radial] 78 Respiratory Rate 16 Blood Pressure [Right Arm] 142/83 Blood Pressure Mean [Right Arm] 102 Blood Pressure Source [Right Arm] Automatic Cuff Blood Pressure Position [Right Arm] Sitting 02 Sat by Pulse Oximetry 99 Oxygen Delivery Method Room Air Medical Decision Narrative: I discussed with the patient basic hygiene applying mupirocin and take antibiotics, he will need to follow-up with the net maker. Skin/Abscess/FB HPI - General Chief complaint: Wound/Laceration Stated complaint: spot on right little toe Time Seen by Provider: 01/01/18 17:00 Mode of Arrival: Ambulatory Limitations: No Limitations Description of Symptoms (Recalled from ER Triage Doc. by RN): wound on right foot - History of Present Illness HPI narrative: 37 years old white male insulin-dependent diabetic with complication including the retinopathy neuropathy and nephropathy. Today he noted a small abrasion on the dorsum of the base of the right fifth toe. He became concerned came to the ED. he denies having fever or chills red streaks lymph nodes. He still seeing double from his right eye, he was evaluated by [facility] retina and at the present time there is no intervention. - Related Data Home Medications Medication Instructions Recorded Confirmed Atorvastatin Calcium [Atorvastatin 40 mg PO DAILY 10/13/17 11/22/17 40mg Tab] Clopidogrel Bisulfate [Plavix 75mg 75 mg PO DAILY 10/13/17 11/21/17 Tab] Gabapentin [Gabapentin 300mg Cap] 300 mg PO BID 10/13/17 11/21/17 Linagliptin [Tradjenta] 5 mg PO DAILY 10/13/17 11/21/17 Lisinopril [Lisinopril 10mg Tab] 10 mg PO DAILY 10/13/17 11/21/17 Nadolol 80 mg PO DAILY 10/13/17 11/21/17 Pantoprazole Sodium [Pantoprazole 40 mg PO DAILY 10/13/17 11/21/17 20mg Tab] Umeclidinium Brm/Vilanterol Tr 1 puff INHALATION DAILY 10/13/17 11/22/17 [Anoro Ellipta 62.5-25 Mcg INH] buspirone 10 mg tablet 10 mg PO BID tab 11/20/17 11/22/17 doxepin 50 mg capsule 50 mg PO HS 11/20/17 11/22/17 insulin glargine (U-100) 100 30 unit SUB-Q HS ml 11/20/17 11/22/17 unit/mL (3 mL) subcutaneous pen metformin 500 mg tablet 2,000 mg PO BID tab 11/20/17 11/22/17 ropinirole 1 mg tablet 1 mg PO BID tab 11/20/17 11/22/17 vilazodone 20 mg tablet 20 mg PO DAILY tab 11/20/17 11/22/17 Isosorbide Mononitrate [Imdur 30mg 30 mg PO QAM 11/21/17 11/21/17 ER tablet] Aspirin [Aspirin 81mg chewable 81 mg PO DAILY 11/22/17 11/22/17 tab] Previous Rx's Medication Instructions Recorded Mupirocin Calcium [Mupirocin 2% 1 applicatio TP TID #1 tube 01/01/18 Cream 15gm] Sulfamethoxazole/Trimethoprim 1 each PO BID #20 tab 01/01/18 [Bactrim DS tablet] Allergies Allergy/AdvReac Type Severity
--- NOTE | 2018-01-01 17:36 | ED_ITS ---
ED Disposition Clinical Impression: Abrasion of skin, IDDM (insulin dependent diabetes mellitus), Diabetic retinopathy Disposition: Home, Self-Care Condition on Discharge: Fair Instructions: DI for Laceration Repair Prescriptions: Mupirocin Calcium [Mupirocin 2% Cream 15gm] 1 applicatio TP TID #1 tube Sulfamethoxazole/Trimethoprim [Bactrim DS tablet] 1 each PO BID #20 tab Referrals: Sobia Garcia [Primary Care Provider] - Kirsten Arreaga DPM [Physician] - - Critical Care Critical Care Time: No Attestation: On 01/01/18, the high probability of a clinically significant, sudden or life threatening deterioration of the following system(s) required my full and direct attention, intervention and personal management. The time I documented below is in addition to time spent performing reported procedures but includes the following listed in this critical care notation. Medical Decision Making - Medical Records Medical records reviewed: Yes: I reviewed the patient's medical records. - Dariusz Inquiry Pt receiving controlled substance: No Dariusz was queried for this patient: No Vital Signs: 01/01/18 17:08 Temperature 98.4 F Temperature Source Oral Pulse Rate [Right Radial] 78 Respiratory Rate 16 Blood Pressure [Right Arm] 142/83 Blood Pressure Mean [Right Arm] 102 Blood Pressure Source [Right Arm] Automatic Cuff Blood Pressure Position [Right Arm] Sitting 02 Sat by Pulse Oximetry 99 Oxygen Delivery Method Room Air Medical Decision Narrative: I discussed with the patient basic hygiene applying mupirocin and take antibiotics, he will need to follow-up with the composing room machinist apprentice. Skin/Abscess/FB HPI - General Chief complaint: Wound/Laceration Stated complaint: spot on right little toe Time Seen by Provider: 01/01/18 17:00 Mode of Arrival: Ambulatory Limitations: No Limitations Description of Symptoms (Recalled from ER Triage Doc. by RN): wound on right foot - History of Present Illness HPI narrative: 37 years old white male insulin-dependent diabetic with complication including the retinopathy neuropathy and nephropathy. Today he noted a small abrasion on the dorsum of the base of the right fifth toe. He became concerned came to the ED. he denies having fever or chills red streaks lymph nodes. He still seeing double from his right eye, he was evaluated by [facility] retina and at the present time there is no intervention. - Related Data Home Medications Medication Instructions Recorded Confirmed Atorvastatin Calcium [Atorvastatin 40 mg PO DAILY 10/13/17 11/22/17 40mg Tab] Clopidogrel Bisulfate [Plavix 75mg 75 mg PO DAILY 10/13/17 11/21/17 Tab] Gabapentin [Gabapentin 300mg Cap] 300 mg PO BID 10/13/17 11/21/17 Linagliptin [Tradjenta] 5 mg PO DAILY 10/13/17 11/21/17 Lisinopril [Lisinopril 10mg Tab] 10 mg PO DAILY 10/13/17 11/21/17 Nadolol 80 mg PO DAILY 10/13/17 11/21/17 Pantoprazole Sodium [Pantoprazole 40 mg PO DAILY 10/13/17 11/21/17 20mg Tab] Umeclidinium Brm/Vilanterol Tr 1 puff INHALATION DAILY 10/13/17 11/22/17 [Anoro Ellipta 62.5-25 Mcg INH] buspirone 10 mg tablet 10 mg PO BID tab 11/20/17 11/22/17 doxepin 50 mg capsule 50 mg PO HS 11/20/17 11/22/17 insulin glargine (U-100) 100 30 unit SUB-Q HS ml 11/20/17 11/22/17 unit/mL (3 mL) subcutaneous pen
[2018-01-01 17:52] VITALS: BP 132/74; PULSE 75; RESP 18; TEMP 36.7; O2SAT 96
== END 2018-01-01 17:52 | disposition home or self-care (01) ==
PROVIDERS: Emergency Provider Emergency Medicine; PCP Family Medicine
DX: E13.319 Other specified diabetes mellitus with unspecified diabetic retinopathy without macular edema (principal); I10 Essential (primary) hypertension; Z79.4 Long term (current) use of insulin; Z79.84 Long term (current) use of oral hypoglycemic drugs; I25.10 Atherosclerotic heart disease of native coronary artery without angina pectoris; R00.2 Palpitations
CPT/HCPCS: 99281

== ENCOUNTER → 2018-05-03 08:54 | Outpatient (CLI) | payer OTHER, SELFPAY ==
--- NOTE | 2018-05-03 08:55 | US_ITS ---
US gallbladder HISTORY: ITS.REASON: right upper quad pain ORDERING PHYSICIAN: Narciso Morales MD PATIENT AGE: 38 years Comparison: None FINDINGS: PANCREAS: Unremarkable. No obvious mass or abnormal fluid collection. No ductal dilatation LIVER: No focal liver lesions demonstrated. Homogeneous echogenicity. No intrahepatic biliary ductal dilatation evident RIGHT KIDNEY: Unremarkable. Normal size and echogenicity. No hydronephrosis GALLBLADDER: There is layering sludge within the gallbladder. No shadowing is evident. No distinct stones are apparent. No gallbladder wall thickening, pericholecystic fluid, or biliary dilatation. Common bile duct is 3 mm. IMPRESSION: 1. Moderate amount of layering gallbladder sludge. 2. No shadowing stones or other significant anomalies
== END ==
PROVIDERS: PCP Family Medicine; Visit Provider Surgery
DX: Z01.818 Encounter for other preprocedural examination (principal); K80.20 Calculus of gallbladder without cholecystitis without obstruction; R10.11 Right upper quadrant pain
CPT/HCPCS: 76705; 93005

== ENCOUNTER → 2021-03-15 08:41 | Outpatient (CLI) | payer MEDICARE, SELFPAY ==
--- NOTE | 2021-03-15 08:49 | XR_ITS ---
PROCEDURE: XR DEXA AXIAL SKELETON CLINICAL HISTORY: AT HIGH RISK OF OSTEOPOROSIS COMPARISON: No exams were available for comparison FINDINGS: The right hip BMD is 0.897 with a T-score of -0.9. The left hip BMD is 0.834 with a T-score of -1.3. The lumbar spine BMD is 0.942 with a T-score of -1.4. IMPRESSION: This patient is considered osteopenic according to the World Health Organization criteria. Bone density is between 10 and 25 percent below young normal. Fracture risk is moderate. Treatment is advised. Based on these results a follow-up exam is recommended in 1 year. Dictated by: Camron Lindquist MD 03/18/2021 09:30 Camron Lindquist MD in [place] 03/18/2021 09:30
== END ==
PROVIDERS: PCP Family Medicine; Visit Provider Family Medicine
DX: Z91.89 Other specified personal risk factors, not elsewhere classified (principal); Z87.81 Personal history of (healed) traumatic fracture; E78.5 Hyperlipidemia, unspecified; E11.69 Type 2 diabetes mellitus with other specified complication; Z79.4 Long term (current) use of insulin; M85.89 Other specified disorders of bone density and structure, multiple sites
CPT/HCPCS: 77080

== ENCOUNTER 2021-06-08 19:50 | Emergency (ER) | payer MEDICARE, SELFPAY ==
[2021-06-08 19:51] VITALS: BP 139/94; PULSE 96; RESP 20; TEMP 37.1; O2SAT 98; BMI 23.7
[2021-06-08 20:16] LABS: Coronavirus 19, PCR Not Detected (NotDetected); Influenza A, PCR Not Detected (NotDetected); Influenza B, PCR Not Detected (NotDetected)
[2021-06-08 20:30] VITALS: BP 139/94; PULSE 89; O2SAT 97
--- NOTE | 2021-06-08 20:47 | ECG_ITS ---
APPROVED REPORT Exam: Resting ECG HR:88 bpm ECG Measurements Heart Rate 88 AXES SD 152 P 75 QRSd 88 QRS 68 QT 328 T 69 QTc 396 Conclusion Normal sinus rhythm Possible Left atrial enlargement Nonspecific ST and T wave abnormality Abnormal ECG Electronically signed by : Oswald Carranza MD 06/10/2021 10:55:01
--- NOTE | 2021-06-08 20:58 | XR_ITS ---
PROCEDURE INFORMATION: Exam: XR Chest Exam date and time: 06/08/2021 8:58 PM Age: 41 years old Clinical indication: Cough and shortness of breath; Patient HX: Smoker; Additional info: SOA, cough, covid- TECHNIQUE: Imaging protocol: XR of the chest. Views: 2 views. COMPARISON: DX CXR2V XR chest 2V 11/21/2017 2:26 PM FINDINGS: Lungs: Unremarkable. No consolidation. Pleural spaces: Unremarkable. No pleural effusion. No pneumothorax. Heart/Mediastinum: Unremarkable. No cardiomegaly. Bones/joints: Unremarkable. There are clips present within the right upper quadrant, compatible prior cholecystectomy. IMPRESSION: No acute findings.
[2021-06-08 21:00] VITALS: BP 149/98; PULSE 91; O2SAT 97
[2021-06-08 21:15] LABS: Basophils # 0.1 K/mm3 (0-0.2); Basophils % 0.5 % (0.1-2.0); Eosinophils # 0.2 K/mm3 (0.0-0.4); Eosinophils % 1.8 % (0.1-12.0); Hematocrit 49.5 % (42.0-52.0); Hemoglobin 17.4 g/dL (14.1-18.0); Lymphocytes # 1.2 K/mm3 (0.7-4.5); Lymphocytes % 13.3 % (10-50); Mean Corpuscular HGB Conc 35.2 g/dL (31.8-35.4); Mean Corpuscular Hemoglobin 30.4 pg (27.0-31.2); Mean Corpuscular Volume 86.4 fl (80-94); Monocytes # 0.6 K/mm3 (0.1-1.0); Monocytes % 7.1 % (1.7-9.3); Neutrophils # 6.8 K/mm3 (1.8-7.8); Neutrophils % 77.3 % (37.0-80.0); Platelet Count 203 K/mm3 (142-424); Red Blood Count 5.74 M/mm3 (4.60-6.20); White Blood Count 8.8 K/mm3 (4.8-10.8)
[2021-06-08 21:18] LABS: Alanine Aminotransferase 39 U/L (12-78); Albumin Level 4.3 g/dl (3.5-5.0); Albumin/Globulin Ratio 1.5 (1.1-1.8); Alkaline Phosphatase 89 U/L (38-126); Aspartate Amino Transferase 29 U/L (17-59); Bilirubin,Total 0.8 mg/dl (0.2-1.3); Blood Urea Nitrogen 10 mg/dl (9-20); Calcium 9.2 mg/dl (8.4-10.2); Carbon Dioxide 28 mmol/L (22.0-30.0); Chloride 100 mmol/L (98-107); Creatinine Clearance Estimated 150 mL/min (50-200); Estimated Glomerular Filt Rate 124 ml/min (>60); GFR (African American) 150 ML/MIN (>60); Globulin 2.8 g/dL (1.3-3.2); Glucose 172 mg/dl (74-100); Sodium 138 mmol/L (136-145); Total Protein,Serum 7.1 g/dl (6.3-8.2)
[2021-06-08 21:30] VITALS: BP 153/92; PULSE 84; O2SAT 99
[2021-06-08 21:37] LABS: Troponin I < 0.01 ng/ml (0.00-0.034)
[2021-06-08 21:38] LABS: Procalcitonin 0.058 ng/mL (0.0-2.0)
[2021-06-08 21:55] LABS: Erythrocyte Sedimentation Rate 1 mm/hr (0-15)
[2021-06-08 23:00] VITALS: BP 156/100; PULSE 88; O2SAT 98
[2021-06-08 23:49] LABS: Troponin I < 0.01 ng/ml (0.00-0.034)
[2021-06-09 00:04] VITALS: BP 177/94; PULSE 88; RESP 20; TEMP 36.8; O2SAT 99
--- NOTE | 2021-06-09 00:06 | HMH.EDSOB ---
ED Disposition Clinical Impression: Bronchitis Disposition: Home, Self-Care Condition on Discharge: Good Instructions: DI for Acute Bronchitis Additional Instructions: fluids and see pcp for follow up and use meds Prescriptions: levoFLOXacin [Levaquin 500mg tab] 500 mg PO DAILY #7 tab Transmission Status: Pending to [facility]/pharmacy #[id number] Referrals: Sobia Mena [Primary Care Provider] - - Critical Care Critical Care Time: No Attestation: On 06/08/21, the high probability of a clinically significant, sudden or life threatening deterioration of the following system(s) required my full and direct attention, intervention and personal management. The time I documented below is in addition to time spent performing reported procedures but includes the following listed in this critical care notation. Medical Decision Making - Medical Records Medical records reviewed: Yes: I reviewed the patient's medical records. - Dariusz Inquiry Pt receiving controlled substance: No Vital Signs: 06/08/21 19:51 06/08/21 20:30 06/08/21 21:00 Temperature 98.8 F Temperature Source Oral Pulse Rate 89 91 H Pulse Rate [Right] 96 H Respiratory Rate 20 Blood Pressure 139/94 H 149/98 H Blood Pressure [Right Arm] 139/94 H Blood Pressure Mean [Right Arm] 109 Blood Pressure Source [Right Arm] Automatic Cuff 02 Sat by Pulse Oximetry 98 97 97 Oxygen Delivery Method Room Air Room Air 06/08/21 21:30 06/08/21 23:00 Temperature Temperature Source Pulse Rate 84 88 Pulse Rate [Right] Respiratory Rate Blood Pressure 153/92 H 156/100 H Blood Pressure [Right Arm] Blood Pressure Mean [Right Arm] Blood Pressure Source [Right Arm] 02 Sat by Pulse Oximetry 99 98 Oxygen Delivery Method Room Air - Lab Data Lab results reviewed: Yes: I reviewed the patient's lab results. Lab Results 06/08/21 20:00: SARS-CoV-2 (PCR) Not detected, Influenza A Untype (PCR) Not detected, Influenza Type B (PCR) Not detected 06/08/21 20:28: WBC 8.8, RBC 5.74, Hgb 17.4, Hct 49.5, MCV 86.4, MCH 30.4, MCHC 35.2, RDW 13.0, Plt Count 203, MPV 9.0, Neut % (Auto) 77.3, Lymph % (Auto) 13.3, [place] % (Auto) 7.1, Eos % (Auto) 1.8, Baso % (Auto) 0.5, Neut # (Auto) 6.8, Lymph # (Auto) 1.2, [place] # (Auto) 0.6, Eos # (Auto) 0.2, Baso # (Auto) 0.1, ESR 1 06/08/21 20:28: Sodium 138, Potassium 4.0, Chloride 100, Carbon Dioxide 28, Anion Gap 14.0, BUN 10, Creatinine 0.70, Estimated Creat Clear 150, Estimated GFR 124, Est GFR ( Amer) 150, Glucose 172 H, Calcium 9.2, Total Bilirubin 0.8, AST 29, ALT 39, Alkaline Phosphatase 89, Troponin I < 0.01, C-Reactive Protein 2.0, Total Protein 7.1, Albumin 4.3, Globulin 2.8, Albumin/Globulin Ratio 1.5, Procalcitonin 0.058 06/08/21 23:21: Troponin I < 0.01 Result diagrams: 06/08/21 20:28 06/08/21 20:28 Orders (Tests/Meds): ED MEDICATIONS Generic Name Dose Route Start Last Admin Trade Name Freq PRN Reason Stop Dose Admin Sodium Chloride 1,000 mls @ 999 mls/hr 06/08/21 21:00 06/08/21 21:29 Sod Chlor 0.9% 1000ml Bag IV 06/08/21 22:00 999 mls/hr .Q1H1M YASSINE Administration Discontinued Medications Generic Name Dose Route Start Last Admin Trade Name Freq PRN Reason Stop Dose Admin Dexamethasone Sodium Phosphate 10 mg 06/08/21 20:58 06/08/21 21:29 Dexamethasone 4mg/Ml 5ml Mdv IV 06/08/21 20:59 10 mg ONCE ONE Administration Ketorolac Tromethamine 30 mg 06/08/21 22:50 06/08/21 23:33 Ketorolac 30mg/Ml Vial IV 06/08/21 22:51 30 mg ONCE ONE Administration Ondansetron HCl 4 mg 06/08/21 20:58 06/08/21 21:29 Ondansetron 4mg/2ml Vial IV 06/08/21 20:59 4 mg ONCE ONE Administration ORDERS Category Date Time Status Troponin I Q3H Lab 06/09/21 02:58 Ordered - Radiology Data #1 Image(s): Chest Image Reviewed: Yes I have reviewed radiologist's interpretation Preliminary Findings: Normal/NAD - ECG Data Tracing #1 Normal
== END 2021-06-09 00:19 | disposition home or self-care (01) ==
PROVIDERS: Emergency Provider Emergency Medicine; PCP Family Medicine
DX: J20.9 Acute bronchitis, unspecified (principal); J44.9 Chronic obstructive pulmonary disease, unspecified; I25.10 Atherosclerotic heart disease of native coronary artery without angina pectoris; E11.9 Type 2 diabetes mellitus without complications; F41.8 Other specified anxiety disorders; Z20.822 Contact with and (suspected) exposure to COVID-19; Z79.899 Other long term (current) drug therapy
CPT/HCPCS: 71046; 80053; 84145; 84484; 85025; 85651; 86140; 93005; 96365; 96375; 99283; J2405; U0003

== ENCOUNTER 2021-08-22 06:08 | Emergency (ER) | payer MEDICARE, SELFPAY ==
[2021-08-22 06:09] VITALS: BP 154/101; PULSE 92; RESP 18; TEMP 36.9; O2SAT 98; BMI 23.7
--- NOTE | 2021-08-22 06:51 | ECG_ITS ---
APPROVED REPORT Exam: Resting ECG HR:81 bpm ECG Measurements Heart Rate 81 AXES MS 154 P 73 QRSd 82 QRS 65 QT 334 T 69 QTc 387 Conclusion Normal sinus rhythm Nonspecific T wave abnormality Abnormal ECG Electronically signed by : Oswald Carranza MD 08/23/2021 12:18:10
--- NOTE | 2021-08-22 06:58 | HMH.EDNECK ---
ED Disposition Clinical Impression: Cervical radiculopathy, IDDM (insulin dependent diabetes mellitus) Disposition: Home, Self-Care Condition on Discharge: Good Instructions: DI for Neck Pain Additional Instructions: see pcp for follow up Referrals: Sobia Mena [Primary Care Provider] - - Critical Care Critical Care Time: No Attestation: On 08/22/21, the high probability of a clinically significant, sudden or life threatening deterioration of the following system(s) required my full and direct attention, intervention and personal management. The time I documented below is in addition to time spent performing reported procedures but includes the following listed in this critical care notation. Medical Decision Making - Medical Records Medical records reviewed: Yes: I reviewed the patient's medical records. - Dariusz Inquiry Pt receiving controlled substance: No Vital Signs: 08/22/21 06:09 08/22/21 08:00 Temperature 98.5 F Temperature Source Oral Pulse Rate 80 Pulse Rate [Left] 92 H Respiratory Rate 18 18 Blood Pressure 166/105 H Blood Pressure [Right Arm] 154/101 H Blood Pressure Mean 127 Blood Pressure Mean [Right Arm] 118 02 Sat by Pulse Oximetry 98 97 - Lab Data Lab results reviewed: Yes: I reviewed the patient's lab results. Lab Results 08/22/21 06:30: WBC 9.3, RBC 5.21, Hgb 15.8, Hct 44.6, MCV 85.6, MCH 30.4, MCHC 35.5 H, RDW 13.2, Plt Count 211, MPV 8.5, Neut % (Auto) 69.2, Lymph % (Auto) 23.1, [place] % (Auto) 5.0, Eos % (Auto) 2.3, Baso % (Auto) 0.4, Neut # (Auto) 6.4, Lymph # (Auto) 2.2, [place] # (Auto) 0.5, Eos # (Auto) 0.2, Baso # (Auto) 0.0 08/22/21 06:30: Sodium 138, Potassium 4.2, Chloride 103, Carbon Dioxide 30, Anion Gap 9.2, BUN 15, Creatinine 0.70, Estimated Creat Clear 150, Estimated GFR 124, Est GFR ( Amer) 150, Glucose 212 H, Calcium 9.1 08/22/21 06:30: Total Bilirubin 0.4, Direct Bilirubin 0.1, Conjugated Bilirubin 0.0, Indirect Bilirubin 0.3, Unconjugated Bilirubin 0.3, AST 30, ALT 28, Alkaline Phosphatase 98, Troponin I < 0.01, Total Protein 6.9, Albumin 4.2 08/22/21 06:30: ESR 7 Result diagrams: 08/22/21 06:30 08/22/21 06:30 Orders (Tests/Meds): ED MEDICATIONS Discontinued Medications Generic Name Dose Route Start Last Admin Trade Name Jeevan PRN Reason Stop Dose Admin Ketorolac Tromethamine 30 mg 08/22/21 07:45 08/22/21 07:55 Ketorolac 30mg/Ml Vial IV 08/22/21 07:46 30 mg ONCE ONE Administration ORDERS Category Date Time Status Cervical spine XR 5 views [XR cervical spine 5V] Stat Exams 08/22/21 07:08 Taken [place] (Eskalith(R)) Stat Lab 08/22/21 07:35 Received Troponin I Q3H Lab 08/22/21 10:15 Ordered Troponin I Q3H Lab 08/22/21 13:15 Ordered - Radiology Data #1 Image(s): C-Spine Image Reviewed: Yes I have reviewed radiologist's interpretation Preliminary Findings: No Fracture Seen - ECG Data Tracing #1 Normal Sinus Rhythm: Yes Ischemic changes: non-specific ST-T wave changes Medical Decision Narrative: pt with prob cervical disc type pain with stable exam and labs - Neck Pain/Injury HPI - General Chief Complaint: Neck Pain/Injury Stated Complaint: Pain in neck,left shoulder and arm pain a few days Time Seen by Provider: 08/22/21 06:30 Mode of Arrival: Ambulatory Source of Information: Patient, Medical Record Limitations: No Limitations Description of Symptoms (Recalled from ER Triage Doc. by RN): neck pain down to left shoulder into arm x 3 days pt states that he has a hx of osteopenia and is concernd he may have a broken bone and not know. pt also states he is concerned about a possible blood clot because of hx of CAD - History of Present Illness HPI Narrative: pt with hx od neck pain w/o trauma or fever and no rash with rad to upper ext -no chest pain MD complaint: neck pain Onset (ago): day(s) Place: home Severity: moderate Duration: constant Associated symptoms: none - Rel
--- NOTE | 2021-08-22 07:08 | XR_ITS ---
PROCEDURE: XR CERVICAL SPINE 5V CLINICAL INDICATION: neck pain COMPARISON: No exams were available for comparison FINDINGS: Alignment: Normal alignment. Bony structures: No fracture or dislocation. No lytic or blastic change. Disc spaces: No significant degenerative change. The disc spaces are preserved. Additional findings: IMPRESSION: No acute findings. Dictated by: Ender Stallings MD 08/22/2021 09:23 Ender Stallings MD in [place] 08/22/2021 09:23
[2021-08-22 07:17] LABS: Basophils % 0.4 % (0.1-2.0); Eosinophils # 0.2 K/mm3 (0.0-0.4); Eosinophils % 2.3 % (0.1-12.0); Hematocrit 44.6 % (42.0-52.0); Hemoglobin 15.8 g/dL (14.1-18.0); Lymphocytes # 2.2 K/mm3 (0.7-4.5); Lymphocytes % 23.1 % (10-50); Mean Corpuscular HGB Conc 35.5 g/dL (31.8-35.4); Mean Corpuscular Hemoglobin 30.4 pg (27.0-31.2); Mean Corpuscular Volume 85.6 fl (80-94); Mean Platelet Volume 8.5 fl (7.4-10.4); Monocytes # 0.5 K/mm3 (0.1-1.0); Neutrophils # 6.4 K/mm3 (1.8-7.8); Neutrophils % 69.2 % (37.0-80.0); Platelet Count 211 K/mm3 (142-424); Red Blood Count 5.21 M/mm3 (4.60-6.20); Red Cell Distribution Width 13.2 % (11.5-17.5); White Blood Count 9.3 K/mm3 (4.8-10.8)
[2021-08-22 07:24] LABS: Alanine Aminotransferase 28 U/L (12-78); Albumin Level 4.2 g/dl (3.5-5.0); Alkaline Phosphatase 98 U/L (38-126); Aspartate Amino Transferase 30 U/L (17-59); Bilirubin,Direct 0.1 mg/dl (0.0-0.4); Bilirubin,Indirect 0.3 mg/dL (0.0-0.9); Bilirubin,Total 0.4 mg/dl (0.2-1.3); Bilirubin,Unconjugated 0.3 mg/dL (0.0-1.1); Total Protein,Serum 6.9 g/dl (6.3-8.2)
[2021-08-22 07:25] LABS: Anion Gap 9.2 mEq/L (5-15); Blood Urea Nitrogen 15 mg/dl (9-20); Calcium 9.1 mg/dl (8.4-10.2); Carbon Dioxide 30 mmol/L (22.0-30.0); Chloride 103 mmol/L (98-107); Creatinine Clearance Estimated 150 mL/min (50-200); Estimated Glomerular Filt Rate 124 ml/min (>60); GFR (African American) 150 ML/MIN (>60); Glucose 212 mg/dl (74-100); Potassium 4.2 mmoL/L (3.5-5.1); Sodium 138 mmol/L (136-145)
[2021-08-22 07:38] LABS: Troponin I < 0.01 ng/ml (0.00-0.034)
[2021-08-22 07:41] LABS: Erythrocyte Sedimentation Rate 7 mm/hr (0-15)
[2021-08-22 08:00] VITALS: BP 166/105; PULSE 80; RESP 18; O2SAT 97
[2021-08-22 08:16] VITALS: BP 154/108; PULSE 82; RESP 18; O2SAT 97
[2021-08-22 08:18] VITALS: BP 154/108; PULSE 97; RESP 20; TEMP 36.9; O2SAT 98
[2021-08-24 01:07] LABS: Lithium (Eskalith(R)) <0.1 mmol/L (0.5-1.2)
== END 2021-08-22 08:20 | disposition home or self-care (01) ==
PROVIDERS: Emergency Provider Emergency Medicine; PCP Family Medicine
DX: M54.12 Radiculopathy, cervical region (principal); E11.65 Type 2 diabetes mellitus with hyperglycemia; I10 Essential (primary) hypertension; I25.10 Atherosclerotic heart disease of native coronary artery without angina pectoris; F41.8 Other specified anxiety disorders; M85.89 Other specified disorders of bone density and structure, multiple sites
CPT/HCPCS: 72050; 80048; 80076; 80178; 84484; 85025; 85651; 93005; 96374; 99283

== ENCOUNTER → 2021-09-13 08:55 | Outpatient (CLI) | payer MEDICARE, SELFPAY ==
--- NOTE | 2021-09-13 08:59 | MR_ITS ---
PROCEDURE: MR SHOULDER LT WO CON CLINICAL INDICATION: SHOULDER PAIN, MYELOPATHY COMPARISON: No exams were available for comparison TECHNIQUE: Routine multiplanar multi echo sequences are performed without gadolinium enhancement. FINDINGS: The infraspinatus tendon has an unremarkable appearance. There is increased T2 signal involving the supraspinatus tendon in the infra acromial region with some thinning of the tendon along the inferior surface which could be secondary to partial tear. No evidence of a complete or full-thickness tear. The subscapularis and teres minor tendons are unremarkable. No obvious labral tear. The bicipital tendon is in place. No fracture or dislocation. No significant effusion. There is heterogeneous bone marrow signal intensity of the scapula, clavicle, and proximal humerus which may be related to red marrow replacement. There is narrowing of the subacromial space anteriorly. IMPRESSION: Subacromial stenosis anteriorly with tendinopathy/tendinosis of the supraspinatus tendon with possible partial tear. No evidence of complete or full-thickness tear. Heterogeneous bone marrow signal intensity suggesting red marrow replacement Dictated by: Ender Stallings MD 09/14/2021 08:50 Ender Stallings MD in [place] 09/14/2021 08:50
--- NOTE | 2021-09-13 08:59 | MR_ITS ---
PROCEDURE: MR CERVICAL SPINE WO CON CLINICAL INDICATION: SHOULDER PAIN, MYELOPATHY COMPARISON: CR XR CERVICAL SPINE 5V from 08/22/2021 TECHNIQUE: Standard multiplanar multiecho sequences are performed without contrast. 3-D MIP and myelographic images are also rendered and reviewed FINDINGS: There is normal alignment. The craniocervical junction has an unremarkable appearance. C2-C3: Unremarkable. C3-C4: Mild left foraminal narrowing from minimal uncovertebral hypertrophy C4-C5: Mild left-sided uncovertebral hypertrophy with mild left foraminal narrowing. C5-C6: Broad-based central and left paracentral and foraminal disc protrusion causing impingement and flattening upon the left aspect of the cord with left lateral recess and foraminal narrowing C6-C7: Minimal right paracentral disc protrusion without impingement. C7-T1: Unremarkable. T1-T2: Minimal right paracentral disc protrusion without impingement. IMPRESSION: 1. C3-C4: Mild left foraminal narrowing from minimal uncovertebral hypertrophy 2. C4-C5: Mild left-sided uncovertebral hypertrophy with mild left foraminal narrowing. 3. C5-C6: Broad-based central and left paracentral and foraminal disc protrusion causing impingement and flattening upon the left aspect of the cord with left lateral recess and foraminal narrowing 4. C6-C7: Minimal right paracentral disc protrusion without impingement. 5. C7-T1: Unremarkable. 6. T1-T2: Minimal right paracentral disc protrusion without impingement. Dictated by: Ender Stallings MD 09/14/2021 08:42 Ender Stallings MD in [place] 09/14/2021 08:42
== END ==
PROVIDERS: PCP Family Medicine; Visit Provider Family Medicine
DX: S49.92XD Unspecified injury of left shoulder and upper arm, subsequent encounter (principal); M54.12 Radiculopathy, cervical region; G99.2 Myelopathy in diseases classified elsewhere
CPT/HCPCS: 72141; 73221; 76376

== ENCOUNTER 2022-03-14 14:43 | Emergency (ER) | payer MEDICARE, SELFPAY ==
[2022-03-14 15:14] VITALS: BP 145/92; PULSE 105; RESP 18; TEMP 36.9; O2SAT 98; BMI 23.7
--- NOTE | 2022-03-14 15:31 | HMH.EDUTC ---
[facility] [place] Disposition Clinical Impression: Dental abscess Disposition: Home, Self-Care Condition on Discharge: Good Instructions: Tooth Abscess, Mupirocin Additional Instructions: Take medication as prescribed Continue taking Naproxen as prescribed Use dental balls as directed in [facility] FOllow up with Dentist for further treatment and evaluation Topical antibiotic to bite on left side Return if needed Straight to ER if any life threatening symptoms Prescriptions: Amoxicillin/Potassium Clav [Amox-Clav 875-125 mg Tablet] 1 tab PO BID #20 tab Transmission Status: Pending to [facility]pharmacy #[id number] Mupirocin [Bactroban 2% Ointment 22gm tube] 1 applicatio TP TID 10 Days #22 gm Transmission Status: Pending to [facility] #[id number] Referrals: Sobia Mena [Primary Care Provider] - As needed Time of Disposition: 15:39 Medical Decision Making - Dariusz Inquiry Pt receiving controlled substance: No Dariusz was queried for this patient: No Vital Signs: 03/14/22 15:14 Temperature 98.4 F Temperature Source Oral Pulse Rate [Left Radial] 105 H Respiratory Rate 18 Blood Pressure [Right Arm] 145/92 H Blood Pressure Mean [Right Arm] 109 02 Sat by Pulse Oximetry 98 [facility] [place] HPI - General Stated complaint: oral pain, spider bite Time Seen by Provider: 03/14/22 15:31 Description of Symptoms (Recalled from Triage Doc. by RN): patient comes in today for a bug bite on his left side of back. patient also complains of tooth pain. pt states he was eating a donut and his tooth broke HEENT Symptoms (Recalled from RN notes): Yes Resp Symptoms (Recalled from RN notes): No Skin Symptoms (Recalled from RN notes): Yes MS Symptoms (Recalled from RN notes): No Functional Status (Recalled from RN notes): wnl - History of Present Illness Provider Complaint: Patient states that he has several decaying and broken teeth State that he was eating a donut and broke on of his bottom front teeth in half States that he has been having pain and swelling in his lower jaw area and worried that it is getting abscessed States that also he has a spider bite on his left back area and wanted to get something for it - Related Data Home Medications Medication Instructions Recorded Confirmed Atorvastatin Calcium [Lipitor 40mg 40 mg PO DAILY 10/13/17 09/17/18 Tab] Gabapentin [Gabapentin 300mg Cap] 600 mg PO DAILY 10/13/17 09/17/18 Umeclidinium Brm/Vilanterol Tr 1 puff INHALATION DAILY 10/13/17 09/17/18 [Anoro Ellipta 62.5-25 Mcg INH] lisinopriL [Lisinopril 10mg Tab] 10 mg PO DAILY 10/13/17 09/17/18 insulin glargine 100 unit/mL (3 30 unit SUB-Q BID ml 11/20/17 09/17/18 mL) subcutaneous pen metformin 500 mg tablet 1,000 mg PO BID tab 11/20/17 03/14/22 Aspirin [Aspirin 81mg chewable 81 mg PO DAILY 11/22/17 09/17/18 tab] Divalproex Sodium [Depakote] 1,000 mg PO DAILY 04/22/18 09/17/18 [place] Carbonate [[place] 900 mg PO DAILY 04/22/18 09/17/18 Carbonate ER] Venlafaxine HCl [Effexor XR 75mg 150 mg PO DAILY 04/22/18 09/17/18 capsule] lamoTRIgine [Lamictal] 200 mg PO DAILY 04/22/18 09/17/18 ziprasidone HCL [Geodon] 160 mg PO DAILY 04/22/18 09/17/18 Sitagliptin Phosphate [Januvia] 1 tab PO DAILY 05/17/18 09/17/18 Previous Rx's Medication Instructions Recorded isosorbide mononitrate 30 mg 30 mg PO QAM #30 tab 06/26/18 tablet,extended release 24 hr levoFLOXacin [Levaquin 500mg 500 mg PO DAILY #7 tab 09/18/18 tab] pantoprazole 40 mg tablet,delayed 40 mg PO DAILY #90 tab 01/14/19 release levoFLOXacin [Levaquin 500mg 500 mg PO DAILY #7 tab 06/09/21 tab] Amoxicillin/Potassium Clav 1 tab PO BID #20 tab 03/14/22 [Amox-Clav 875-125 mg Tablet] Mupirocin [Bactroban 2% Ointment 1 applicatio TP TID 10 Days #22 gm 03/14/22 22gm tube] Allergies Allergy/AdvReac Type Severity Reaction Status Date / Time No Known Allergies Allergy Verified 09/17/18 22:13 - Worker's Comp Is this a Worker's Comp ca
[2022-03-14 15:52] VITALS: BP 142/92; PULSE 105; RESP 18; TEMP 36.9
== END 2022-03-14 15:53 | disposition home or self-care (01) ==
PROVIDERS: Emergency Provider Nurse Practitioner; PCP Family Medicine
DX: T14.8XXA Other injury of unspecified body region, initial encounter (principal); K04.7 Periapical abscess without sinus; K06.1 Gingival enlargement; R00.2 Palpitations; I11.9 Hypertensive heart disease without heart failure; I25.10 Atherosclerotic heart disease of native coronary artery without angina pectoris; E78.5 Hyperlipidemia, unspecified; E11.9 Type 2 diabetes mellitus without complications; M19.90 Unspecified osteoarthritis, unspecified site; G40.909 Epilepsy, unspecified, not intractable, without status epilepticus; H40.9 Unspecified glaucoma; H54.40 Blindness, one eye, unspecified eye; J98.4 Other disorders of lung; J44.9 Chronic obstructive pulmonary disease, unspecified; F32.A Depression, unspecified; F41.9 Anxiety disorder, unspecified; Z79.4 Long term (current) use of insulin; Z79.82 Long term (current) use of aspirin; Z79.84 Long term (current) use of oral hypoglycemic drugs; Z79.899 Other long term (current) drug therapy; Z95.5 Presence of coronary angioplasty implant and graft; Z82.49 Family history of ischemic heart disease and other diseases of the circulatory system; Z83.3 Family history of diabetes mellitus; Z80.9 Family history of malignant neoplasm, unspecified
CPT/HCPCS: 99213; G0463